=== PATIENT | female | born 1935 | race Two or more races ===

== ENCOUNTER 2022-05-10 20:44 | Inpatient (IN) | payer OTHER, MEDICAID ==
[~2022-05-10] VITALS: Ht 167.6 cm; Wt 89.7 kg
[2022-05-10] MEDS ORDERED: FUROSEMIDE 100 MG/10ML VIAL IV ONE (21:00)
[2022-05-10 21:28] LABS: Basophils # (auto) 0.1 10 ^3/uL (0-0.2); Hematocrit 37.5 % (36.0-46.0); Hemoglobin 11.5 g/dL (12.2-16.2); Mean Corpuscular Hemoglobin 26.9 pg (28.0-32.0); Mean Corpuscular Hgb Conc. 30.7 g/dL (32.0-36.0); Red Blood Cells 4.28 10^6/uL (4.0-5.20)
[2022-05-10 21:30] VITALS: BP 160/78
[2022-05-10 21:30] LABS: Eosinophils # (auto) 0.1 10 ^3/uL (0-0.8); Eosinophils % (auto) 1.4 % (0.0-7.0); Lymphocytes # (auto) 2.8 10 ^3/uL (0.4-5.4); Lymphocytes % (auto) 30.7 % (10.0-50.0); Mean Corpuscular Volume 87.5 fL (80.0-100.0); Monocytes # (auto) 0.7 10 ^3/uL (0-1.3); Monocytes % (auto) 7.2 % (0.0-12.0); Neutrophils # (auto) 5.5 10 ^3/uL (1.6-8.6); Neutrophils % (auto) 59.7 % (37.0-80.0); Nucleated Red Blood Cells % 0.1 %; Red Cell Distribution Width 16.6 % (11.8-14.3); White Blood Cell 9.2 10^3/uL (4.4-10.8)
[2022-05-10] MEDS ORDERED: methylPREDNISolone SOD SUCC 125 MG/2 ML VL IV ONE (21:30)
[2022-05-10] MEDS ORDERED: LORazepam 2MG/ML-1ML VIAL IV ONE ×2 (21:45→22:00)
[2022-05-10 21:48] LABS: Albumin 3.5 g/dL (3.4-5.0); BUN/Creatinine Ratio 13.6; Calcium 8.5 mg/dL (8.5-10.1); INR 1.04 (0.9-1.15); Magnesium 2.6 mg/dL (1.6-2.6); Partial Thromboplastin Time 25.5 sec (24.6-33.4); Potassium 4.8 mmol/L (3.5-5.1)
[2022-05-10 21:51] LABS: Bilirubin, Total 0.3 mg/dL (0.2-1.0)
[2022-05-10 21:57] LABS: Urine Bacteria FEW /hpf (None Seen); Urine Blood Negative /uL (Negative); Urine Specific Gravity 1.007 (1.001-1.035); Urine WBC <1 /hpf (0 - 5)
[2022-05-10] MEDS ORDERED: IPRATROPIUM BROM 0.5 MG/2.5ML INH SOL NEB PRN (22:00)
[2022-05-10] MEDS ORDERED: ALBUTEROL SULF 2.5 MG/0.5ML(0.5%) NEB SOLN NEB PRN (22:00)
[2022-05-10 23:30] VITALS: BP 118/52
[2022-05-11] MEDS ORDERED: cloNIDine HCL 0.1 MG TAB PO PRN (01:00)
[2022-05-11] MEDS ORDERED: AZITHROMYCIN 500MG/ 250ML 250 ML IV ONE (01:00)
[2022-05-11] MEDS ORDERED: MORPHINE SULFATE INJ 2 MG/ml SYRG IV PRN (01:00)
[2022-05-11] MEDS ORDERED: ALBUTEROL SULF 2.5 MG/0.5ML(0.5%) NEB SOLN NEB PRN (01:00)
[2022-05-11] MEDS ORDERED: ONDANSETRON HCL 4 MG/2 ML VIAL IV PRN (01:00)
[2022-05-11] MEDS ORDERED: ACETAMINOPHEN 325 MG TAB PO PRN (01:00)
[2022-05-11] MEDS ORDERED: cefTRIAXone 1GM/50ML D5W 50 ML IV ONE (01:00)
[2022-05-11] MEDS ORDERED: HYDROcodone-ACET 5/325MG TAB PO PRN (01:00)
[2022-05-11] MEDS ORDERED: NITROGLYCERIN 0.4 MG SL TAB SL PRN (01:00)
[2022-05-11] MEDS ORDERED: DEXTROSE (50%) 50ML SYRG IV PRN (01:00)
[2022-05-11 01:30] VITALS: BP 129/56
[2022-05-11 02:18] LABS: Lactic Acid w/Reflex 2.3 mmol/L (0.4-2.0)
[2022-05-11] MEDS ORDERED: LORazepam 2MG/ML-1ML VIAL IV ONE ×2 (02:30→04:15)
[2022-05-11] MEDS ORDERED: GABAPENTIN 300 MG CAP PO ONE (04:15)
[2022-05-11] MEDS: InsuLIN REG 1unit/0.01ml Soln (100units/ml) SC SCH ×4 (07:02→22:00)
[2022-05-11] MEDS: ACCU-CHEK COMFORT CURVE STRIP VI SCH ×4 (07:04→22:02)
[2022-05-11 07:53] LABS: Albumin 3.2 g/dL (3.4-5.0); Calcium 8.3 mg/dL (8.5-10.1); Potassium 4.1 mmol/L (3.5-5.1)
[2022-05-11 07:55] LABS: BUN/Creatinine Ratio 18.7
[2022-05-11 07:57] LABS: Bilirubin, Total 0.3 mg/dL (0.2-1.0); Total Protein 6.8 g/dL (6.4-8.2)
[2022-05-11] MEDS ORDERED: PANTOPRAZOLE 40 MG TAB PO SCH (10:00)
[2022-05-11 10:47] VITALS: BP 129/51
[2022-05-11] MEDS: ASPirin 81 mg TAB PO SCH (12:09)
[2022-05-11] MEDS: FUROSEMIDE 40 MG TAB PO SCH (12:10)
[2022-05-11] MEDS: CARVEDILOL 3.125 MG TAB PO SCH ×2 (12:10→22:01)
[2022-05-11] MEDS: HYDROcodone-ACET 5/325MG TAB PO PRN (12:11)
[2022-05-11] MEDS: amLODIPine BESYLATE 5 MG TAB PO SCH (12:11)
[2022-05-11] MEDS ORDERED: GABAPENTIN 300 MG CAP PO SCH (14:00)
[2022-05-11 14:14] LABS: Cholesterol 188 mg/dL (< 200); Triglycerides 40 mg/dL (< 150)
[2022-05-11 14:17] LABS: HDL Cholesterol 78 mg/dL (40-59); LDL Cholesterol 121 mg/dL (< 100)
[2022-05-11] MEDS: GABAPENTIN 100 MG CAP PO SCH ×2 (14:22→22:02)
[2022-05-11 16:28] VITALS: BP 118/52
[2022-05-11 17:00] VITALS: BP 118/52
[2022-05-11 22:00] VITALS: BP 134/62
[2022-05-11] MEDS ORDERED: AZITHROMYCIN 500MG/ 250ML 250 ML IV SCH (22:00)
[2022-05-11] MEDS: cefTRIAXone 1GM/50ML D5W 50 ML IV SCH (22:01)
[2022-05-11] MEDS: ATORVASTATIN 20 MG TAB PO SCH (22:02)
[2022-05-12 05:00] VITALS: BP 115/58
[2022-05-12] MEDS: HYDROcodone-ACET 5/325MG TAB PO PRN ×2 (05:53→11:53)
[2022-05-12] MEDS: GABAPENTIN 100 MG CAP PO SCH ×2 (05:53→14:32)
[2022-05-12 06:11] LABS: Chloride 112 mmol/L (98-107); Potassium 4.3 mmol/L (3.5-5.1); Sodium 143 mmol/L (136-145)
[2022-05-12 06:13] LABS: Basophils # (auto) 0.1 10 ^3/uL (0-0.2); Basophils % (auto) 0.8 % (0.0-2.0); Eosinophils # (auto) 0.1 10 ^3/uL (0-0.8); Eosinophils % (auto) 0.9 % (0.0-7.0); Hematocrit 29.9 % (36.0-46.0); Hemoglobin 9.5 g/dL (12.2-16.2); Lymphocytes # (auto) 2.1 10 ^3/uL (0.4-5.4); Lymphocytes % (auto) 21.4 % (10.0-50.0); Mean Corpuscular Hemoglobin 27.3 pg (28.0-32.0); Mean Corpuscular Hgb Conc. 31.7 g/dL (32.0-36.0); Mean Corpuscular Volume 86.1 fL (80.0-100.0); Monocytes # (auto) 0.9 10 ^3/uL (0-1.3); Monocytes % (auto) 9.1 % (0.0-12.0); Neutrophils # (auto) 6.7 10 ^3/uL (1.6-8.6); Neutrophils % (auto) 67.8 % (37.0-80.0); Nucleated Red Blood Cells % 0.1 %; Red Blood Cells 3.47 10^6/uL (4.0-5.20); Red Cell Distribution Width 16.6 % (11.8-14.3); White Blood Cell 9.8 10^3/uL (4.4-10.8)
[2022-05-12 06:18] LABS: Alanine Aminotransferase 25 U/L (13-56); Albumin 2.8 g/dL (3.4-5.0); Anion Gap 8 (5-15); Aspartate Aminotransferase 30 U/L (15-37); BUN/Creatinine Ratio 27.2; Blood Urea Nitrogen 44 mg/dL (7-18); Calcium 7.8 mg/dL (8.5-10.1); Carbon Dioxide 23 mmol/L (21-32); GFR African American 39 mL/min; GFR Non-African American 32 mL/min; Glucose 82 mg/dL (74-106)
[2022-05-12 06:19] LABS: Alkaline Phosphatase 80 U/L (45-117); Bilirubin, Total 0.3 mg/dL (0.2-1.0); Total Protein 6.1 g/dL (6.4-8.2)
[2022-05-12] MEDS: InsuLIN REG 1unit/0.01ml Soln (100units/ml) SC SCH ×4 (06:55→22:00)
[2022-05-12] MEDS: ACCU-CHEK COMFORT CURVE STRIP VI SCH ×4 (06:55→22:16)
[2022-05-12 09:00] VITALS: BP 115/57
[2022-05-12] MEDS: CARVEDILOL 3.125 MG TAB PO SCH ×2 (10:00→22:15)
[2022-05-12] MEDS: FUROSEMIDE 40 MG TAB PO SCH (11:54)
[2022-05-12] MEDS: AZITHROMYCIN 250 MG TAB PO SCH (11:54)
[2022-05-12] MEDS: amLODIPine BESYLATE 5 MG TAB PO SCH (11:55)
[2022-05-12] MEDS: ASPirin 81 mg TAB PO SCH (11:55)
[2022-05-12 13:00] VITALS: BP 140/65
[2022-05-12 17:00] VITALS: BP 127/60
[2022-05-12] MEDS ORDERED: ZOLPIDEM TARTRATE 5 MG TAB PO ONE (19:30)
[2022-05-12 22:00] VITALS: BP 127/64
[2022-05-12] MEDS: ATORVASTATIN 20 MG TAB PO SCH (22:14)
[2022-05-12] MEDS: cefTRIAXone 1GM/50ML D5W 50 ML IV SCH (22:15)
[2022-05-13 05:00] VITALS: BP 112/47
[2022-05-13] MEDS: ACCU-CHEK COMFORT CURVE STRIP VI SCH ×4 (06:39→21:28)
[2022-05-13] MEDS: InsuLIN REG 1unit/0.01ml Soln (100units/ml) SC SCH ×4 (06:47→21:27)
[2022-05-13] MEDS: AZITHROMYCIN 250 MG TAB PO SCH (09:04)
[2022-05-13] MEDS: GABAPENTIN 100 MG CAP PO SCH (09:04)
[2022-05-13] MEDS: ASPirin 81 mg TAB PO SCH (09:05)
[2022-05-13] MEDS: amLODIPine BESYLATE 5 MG TAB PO SCH (09:06)
[2022-05-13] MEDS: FUROSEMIDE 40 MG TAB PO SCH (09:06)
[2022-05-13] MEDS: CARVEDILOL 3.125 MG TAB PO SCH ×2 (09:08→21:27)
[2022-05-13 09:16] VITALS: BP 117/59
[2022-05-13] MEDS: HYDROcodone-ACET 5/325MG TAB PO PRN (11:38)
[2022-05-13 13:44] VITALS: BP 133/55
[2022-05-13 16:54] VITALS: BP 150/59
[2022-05-13] MEDS: cefTRIAXone 1GM/50ML D5W 50 ML IV SCH (21:25)
[2022-05-13] MEDS: ATORVASTATIN 20 MG TAB PO SCH (21:25)
[2022-05-13] MEDS: ZOLPIDEM TARTRATE 5 MG TAB PO PRN (21:27)
[2022-05-13 22:00] VITALS: BP 156/68
[2022-05-14] MEDS: HYDROcodone-ACET 5/325MG TAB PO PRN (02:46)
[2022-05-14 04:59] VITALS: BP 104/39
[2022-05-14 06:15] LABS: Anion Gap 8 (5-15); BUN/Creatinine Ratio 34.8; Blood Urea Nitrogen 47 mg/dL (7-18); Calcium 8.5 mg/dL (8.5-10.1); Carbon Dioxide 23 mmol/L (21-32); Chloride 108 mmol/L (98-107); GFR African American 48 mL/min; GFR Non-African American 40 mL/min; Glucose 88 mg/dL (74-106); Potassium 4.7 mmol/L (3.5-5.1); Sodium 139 mmol/L (136-145)
[2022-05-14] MEDS: ACCU-CHEK COMFORT CURVE STRIP VI SCH ×4 (06:40→21:24)
[2022-05-14] MEDS: InsuLIN REG 1unit/0.01ml Soln (100units/ml) SC SCH ×4 (06:41→21:24)
[2022-05-14 08:00] VITALS: BP 141/55
[2022-05-14] MEDS: amLODIPine BESYLATE 5 MG TAB PO SCH (10:48)
[2022-05-14] MEDS: ASPirin 81 mg TAB PO SCH (10:48)
[2022-05-14] MEDS: AZITHROMYCIN 250 MG TAB PO SCH (10:48)
[2022-05-14] MEDS: FUROSEMIDE 40 MG TAB PO SCH (10:49)
[2022-05-14] MEDS: GABAPENTIN 100 MG CAP PO SCH (10:49)
[2022-05-14] MEDS: CARVEDILOL 3.125 MG TAB PO SCH ×2 (10:50→20:58)
[2022-05-14 12:00] VITALS: BP 113/50
[2022-05-14 16:52] VITALS: BP 138/85
[2022-05-14] MEDS: ZOLPIDEM TARTRATE 5 MG TAB PO PRN (21:16)
[2022-05-14] MEDS: ATORVASTATIN 20 MG TAB PO SCH (21:16)
[2022-05-14] MEDS: cefTRIAXone 1GM/50ML D5W 50 ML IV SCH (21:17)
[2022-05-14 22:00] VITALS: BP 115/49
[2022-05-15] MEDS: HYDROcodone-ACET 5/325MG TAB PO PRN (00:54)
[2022-05-15 05:00] VITALS: BP 138/58
[2022-05-15] MEDS: ACCU-CHEK COMFORT CURVE STRIP VI SCH ×4 (05:51→21:32)
[2022-05-15] MEDS: InsuLIN REG 1unit/0.01ml Soln (100units/ml) SC SCH ×4 (05:51→21:31)
[2022-05-15 09:00] VITALS: BP 127/77
[2022-05-15] MEDS: CARVEDILOL 3.125 MG TAB PO SCH ×2 (09:08→21:30)
[2022-05-15] MEDS: ASPirin 81 mg TAB PO SCH (09:09)
[2022-05-15] MEDS: amLODIPine BESYLATE 5 MG TAB PO SCH (09:10)
[2022-05-15] MEDS: AZITHROMYCIN 250 MG TAB PO SCH (09:10)
[2022-05-15] MEDS: FUROSEMIDE 40 MG TAB PO SCH (09:12)
[2022-05-15] MEDS: GABAPENTIN 100 MG CAP PO SCH (09:12)
[2022-05-15] MEDS ORDERED: DONEPEZIL HYDROCHLORIDE 5 MG TAB PO ONE (11:00)
[2022-05-15 13:00] VITALS: BP 103/59
[2022-05-15 16:53] VITALS: BP 107/61
[2022-05-15] MEDS: DONEPEZIL HYDROCHLORIDE 5 MG TAB PO SCH (21:19)
[2022-05-15] MEDS: ATORVASTATIN 20 MG TAB PO SCH (21:20)
[2022-05-15] MEDS: ZOLPIDEM TARTRATE 5 MG TAB PO PRN (21:38)
[2022-05-15 22:00] VITALS: BP 115/63
[2022-05-16] MEDS: HYDROcodone-ACET 5/325MG TAB PO PRN ×3 (04:22→20:17)
[2022-05-16 05:00] VITALS: BP 118/55
[2022-05-16] MEDS: ACCU-CHEK COMFORT CURVE STRIP VI SCH ×4 (06:33→21:14)
[2022-05-16] MEDS: InsuLIN REG 1unit/0.01ml Soln (100units/ml) SC SCH ×4 (06:34→21:15)
[2022-05-16 09:00] VITALS: BP 124/58
[2022-05-16] MEDS: FUROSEMIDE 40 MG TAB PO SCH (09:26)
[2022-05-16] MEDS: GABAPENTIN 100 MG CAP PO SCH (09:26)
[2022-05-16] MEDS: ASPirin 81 mg TAB PO SCH (09:27)
[2022-05-16] MEDS: CARVEDILOL 3.125 MG TAB PO SCH ×2 (09:28→21:13)
[2022-05-16] MEDS: amLODIPine BESYLATE 5 MG TAB PO SCH (09:28)
[2022-05-16 13:00] VITALS: BP 99/54
[2022-05-16 17:00] VITALS: BP 139/71
[2022-05-16] MEDS: DONEPEZIL HYDROCHLORIDE 5 MG TAB PO SCH (21:12)
[2022-05-16] MEDS: ZOLPIDEM TARTRATE 5 MG TAB PO PRN (21:12)
[2022-05-16] MEDS: ATORVASTATIN 20 MG TAB PO SCH (21:12)
[2022-05-16 22:00] VITALS: BP 135/60
[2022-05-17 05:00] VITALS: BP 136/52
[2022-05-17] MEDS: ACCU-CHEK COMFORT CURVE STRIP VI SCH (06:08)
[2022-05-17] MEDS: InsuLIN REG 1unit/0.01ml Soln (100units/ml) SC SCH (06:08)
[2022-05-17 09:00] VITALS: BP 129/54
[2022-05-17] MEDS: GABAPENTIN 100 MG CAP PO SCH (09:42)
[2022-05-17] MEDS: ASPirin 81 mg TAB PO SCH (09:42)
[2022-05-17] MEDS: amLODIPine BESYLATE 5 MG TAB PO SCH (09:43)
[2022-05-17] MEDS: FUROSEMIDE 40 MG TAB PO SCH (09:43)
[2022-05-17] MEDS: CARVEDILOL 3.125 MG TAB PO SCH ×2 (09:44→22:06)
[2022-05-17] MEDS: ALPRAZolam 0.5 MG TAB PO PRN (10:48)
[2022-05-17 13:00] VITALS: BP 98/53
[2022-05-17 17:00] VITALS: BP 144/57
[2022-05-17] MEDS: ZOLPIDEM TARTRATE 5 MG TAB PO PRN (22:04)
[2022-05-17] MEDS: DONEPEZIL HYDROCHLORIDE 5 MG TAB PO SCH (22:05)
[2022-05-17] MEDS: ATORVASTATIN 20 MG TAB PO SCH (22:07)
[2022-05-17] MEDS: QUEtiapine FUMARATE 100 MG TAB PO SCH (22:07)
[2022-05-17 22:26] VITALS: BP 114/59
[2022-05-18 05:03] VITALS: BP 118/58
[2022-05-18 08:00] VITALS: BP 130/99
[2022-05-18 09:00] VITALS: BP 130/99
[2022-05-18] MEDS: ASPirin 81 mg TAB PO SCH (09:30)
[2022-05-18] MEDS: CARVEDILOL 3.125 MG TAB PO SCH ×2 (09:30→22:00)
[2022-05-18] MEDS: GABAPENTIN 100 MG CAP PO SCH (09:31)
[2022-05-18] MEDS: amLODIPine BESYLATE 5 MG TAB PO SCH (09:31)
[2022-05-18] MEDS: FUROSEMIDE 40 MG TAB PO SCH (09:31)
[2022-05-18] MEDS: ALPRAZolam 0.5 MG TAB PO PRN (09:41)
[2022-05-18 13:00] VITALS: BP 119/57
[2022-05-18 17:00] VITALS: BP 108/57
[2022-05-18] MEDS: DONEPEZIL HYDROCHLORIDE 5 MG TAB PO SCH (20:59)
[2022-05-18] MEDS: QUEtiapine FUMARATE 100 MG TAB PO SCH (20:59)
[2022-05-18] MEDS: ATORVASTATIN 20 MG TAB PO SCH (20:59)
[2022-05-18] MEDS: ZOLPIDEM TARTRATE 5 MG TAB PO PRN (21:02)
[2022-05-18 22:00] VITALS: BP 122/43
[2022-05-19 05:04] VITALS: BP 115/62
[2022-05-19 08:00] VITALS: BP 114/49
[2022-05-19] MEDS: CARVEDILOL 3.125 MG TAB PO SCH (10:00)
[2022-05-19] MEDS: ASPirin 81 mg TAB PO SCH (10:28)
[2022-05-19] MEDS: amLODIPine BESYLATE 5 MG TAB PO SCH (10:29)
[2022-05-19] MEDS: FUROSEMIDE 40 MG TAB PO SCH (10:29)
[2022-05-19] MEDS: GABAPENTIN 100 MG CAP PO SCH (10:29)
[2022-05-19] MEDS: ALPRAZolam 0.5 MG TAB PO PRN (10:30)
[2022-05-19 13:00] VITALS: BP 120/82
[2022-05-19 15:31] VITALS: BP 115/57
[2022-05-19 17:00] VITALS: BP 103/58
== END 2022-05-19 17:55 | DRG 193 ==
LOC: ER 20:44 → EDBD 20:44 → TELE 05-11 00:56 → TELE-EAST 05-11 15:30 → EAST 05-19 11:19
PROVIDERS: ADMIT Nurse Practitioner; ATTEND Family Medicine
PROC: 5A09357 Assistance with Respiratory Ventilation, Less than 24 Consecutive Hours, Continuous Positive Airway Pressure (ICD-10-PCS; principal; 2022-05-10)
DX: J18.9 Pneumonia, unspecified organism (principal); I50.43 Acute on chronic combined systolic (congestive) and diastolic (congestive) heart failure; J96.01 Acute respiratory failure with hypoxia; I13.0 Hypertensive heart and chronic kidney disease with heart failure and stage 1 through stage 4 chronic kidney disease, or unspecified chronic kidney disease; N17.9 Acute kidney failure, unspecified; J44.0 Chronic obstructive pulmonary disease with (acute) lower respiratory infection; F41.9 Anxiety disorder, unspecified; N18.9 Chronic kidney disease, unspecified; J44.9 Chronic obstructive pulmonary disease, unspecified; E11.22 Type 2 diabetes mellitus with diabetic chronic kidney disease; E11.51 Type 2 diabetes mellitus with diabetic peripheral angiopathy without gangrene; Z86.73 Personal history of transient ischemic attack (TIA), and cerebral infarction without residual deficits
CPT/HCPCS: 36415; 71045; 71250; 78582; 80048; 80053; 80061; 81001; 82962; 83036; 83605; 83735; 83880; 84443; 84484; 85025; 85379; 85610; 85730; 87081; 87426; 87804; 93005; 93306; 93925; 93970; 94640; 94660; 96365; 96375; 97116; 97163; 97530; 99291; G0378; J0696; J1815